=== PATIENT | male | born 2000 | race Hispanic/Latino ===

== ENCOUNTER 2024-11-28 18:51 | Emergency (ER) | payer OTHER ==
[~2024-11-28] VITALS: Ht 182.9 cm; Wt 100.0 kg
[2024-11-28] MEDS ORDERED: LORazepam 2 MG/ML VIAL IM ONE (19:15)
[2024-11-28] MEDS ORDERED: KETAMINE HCL 500 MG/5 ML MDV IM ONE (19:45)
[2024-11-28] MEDS ORDERED: ondansetron HCL 4 MG/2 ML VIAL IM ONE (20:00)
[2024-11-28 20:34] LABS: BASOPHILS 0.2 % (0.2-1.2); EOSINOPHILS 0.5 % (0.8-7.0); HEMATOCRIT 40.8 % (40.1-51.0); HEMOGLOBIN 13.4 g/dL (13.7-17.5); LYMPHOCYTES 39.8 % (21.8-53.1); MCH 28.8 PG (25.7-32.2); MCHC 32.8 g/dL (32.3-36.5); MCV 87.7 fL (79.0-92.2); MONOCYTES 6.5 % (5.3-12.2); NEUTROPHILS 52.6 % (34.0-67.9); PLATELET COUNT 156 K/uL (163-337); RBC 4.65 M/uL (4.63-6.08)
[2024-11-28 21:02] LABS: ACETAMINOPHEN 0 ug/mL (10-30); ALBUMIN 3.5 g/dL (3.4-5.0); ALBUMIN/GLOBULIN RATIO 0.83 (1.1-2.4); ALCOHOL, MEDICAL 147 ng/dL (<3); ALKALINE PHOSPHATASE 99 U/L (46-116); ALT (SGPT) 44 U/L (14-59); ANION GAP 16.5 (7-21); AST (SGOT) 24 U/L (15-37); BILIRUBIN, TOTAL 0.3 mg/dL (0.2-1.0); BUN/CREATININE RATIO 7.47 (6.0-28.6); CALCIUM 8.6 mg/dL (8.5-10.1); CARBON DIOXIDE 26 mmol/L (21-32); CHLORIDE 108 mmol/L (98-107); CREATININE, SERUM 1.07 mg/dL (0.70-1.30); GLOMERULAR FILTRATION RATE,EST 100 mL/min (>60); POTASSIUM 3.5 mmol/L (3.5-5.1); PROTEIN, TOTAL 7.7 g/dL (6.4-8.2); TSH, 3RD GENERATION 0.718 uIU/mL (0.358-3.740); UREA NITROGEN 8 mg/dL (7-18)
[2024-11-29 10:19] LABS: BILIRUBIN, URINE POSITIVE (negative); BLOOD/HGB, URINE TRACE-L (Negative); KETONE, URINE SMALL (Negative); LEUK ESTERASE, URINE NEGATIVE (negative); NITRITE, URINE NEGATIVE (negative); PH, URINE 7.5 (5-7)
[2024-11-29 10:22] LABS: BACTERIA, URINE RARE /hpf (negative); CASTS, URINE NONE SEEN \\lpf; COLLECTION TYPE, URINE CLEAN CATCH; CRYSTALS, URINE NONE SEEN (0-1+); EPITHELIAL CELLS, URINE 0 /lpf (0-1+); REFLEX CULTURE, URINE No (No); WHITE BLOOD CELLS, URINE 0-1 /HPF (0-5)
[2024-11-29 10:40] LABS: AMPHETAMINES, URINE NEGATIVE (NEGATIVE); BARBITURATES, URINE NEGATIVE (NEGATIVE); BENZODIAZEPINE, URINE POSITIVE (NEGATIVE); BUPRENORPHINE, URINE NEGATIVE (NEGATIVE); CANNABINOID, URINE POSITIVE (NEGATIVE); COCAINE, URINE NEGATIVE (NEGATIVE); ECSTASY, URINE NEGATIVE (NEGATIVE); FENTANYL, URINE NEGATIVE (NEGATIVE); METHADONE, URINE NEGATIVE (NEGATIVE); OPIATES, URINE NEGATIVE (NEGATIVE); OXYCODONE, URINE NEGATIVE (NEGATIVE); PHENCYCLIDINE, URINE NEGATIVE (NEGATIVE)
[2024-11-29 12:15] VITALS: BP 138/77
== END 2024-11-29 12:15 | disposition home or self-care (01) ==
LOC: ED 18:51
PROVIDERS: Emergency Medicine
DX: R45.851 Suicidal ideations (principal); F23 Brief psychotic disorder; F10.129 Alcohol abuse with intoxication, unspecified; S10.91XA Abrasion of unspecified part of neck, initial encounter; X58.XXXA Exposure to other specified factors, initial encounter
CPT/HCPCS: 36415; 80053; 80307; 81001; 84443; 85025; 96374; 99284-25; G0480; J2060; J2405; J3490